=== PATIENT | female | born 1965 | race Caucasian/White ===

== ENCOUNTER 2019-12-13 15:26 | Outpatient (CLI) | payer BC ==
[2019-12-14] MEDS ORDERED: OXYM30SP26 BOTHNARES (10:35)
[2019-12-14] MEDS ORDERED: ESOM40CA49 PO (10:35)
[2019-12-14] MEDS ORDERED: DIPH25CA83 PO (10:35)
== END 2019-12-13 23:59 | disposition home or self-care (01) ==
LOC: RAD 15:26
PROVIDERS: ATTEND Surgery
DX: K21.9 Gastro-esophageal reflux disease without esophagitis (principal); R13.14 Dysphagia, pharyngoesophageal phase
CPT/HCPCS: 74230

== ENCOUNTER 2019-12-21 07:15 | Inpatient (IN) | payer BC ==
[2019-12-14 10:45] LABS: BASOPHILS # (AUTO) 0.1 X10'3 (0-0.2); BASOPHILS % (AUTO) 1.3 % (0-1); EOSINOPHILS # (AUTO) 0.3 X10'3 (0-0.9); EOSINOPHILS % (AUTO) 3.2 % (0-6); LYMPHOCYTES # (AUTO) 2.3 X10'3 (1.1-4.8); LYMPHOCYTES % (AUTO) 24.4 % (21-51); MEAN CORPUSCULAR HEMOGLOBIN 30.3 PG (27.0-31.0); MEAN CORPUSCULAR HGB CONC 33.9 g/dL (33.0-36.5); MEAN CORPUSCULAR VOLUME 89.4 FL (78-98); MEAN PLATELET VOLUME 8.1 FL (7.4-10.4); MONOCYTES # (AUTO) 0.7 X10'3 (0-0.9); MONOCYTES % (AUTO) 7.3 % (2-12); NEUTROPHILS # (AUTO) 5.9 X10'3 (1.8-7.7); NEUTROPHILS % (AUTO) 63.8 % (42-75); PRE OP HEMATOCRIT 44.9 % (35.0-45.0); PRE OP HEMOGLOBIN 15.2 g/dL (12.0-16.0); PRE OP PLATELET COUNT 408 X10'3 (140-440); RED BLOOD COUNT 5.02 X10'6 (4.20-5.60); RED CELL DISTRIBUTION WIDTH 14.5 % (11.5-14.5)
[2019-12-14 10:58] LABS: ALBUMIN 4.4 G/DL (3.4-5.0); ALBUMIN/GLOBULIN RATIO 1.2 (1.1-1.5); ALKALINE PHOSPHATASE 80 IU/L (46-116); BLOOD UREA NITROGEN 13 MG/DL (7-18); BUN/CREATININE RATIO 13.7 (6.6-38.0); CALCIUM 9.1 MG/DL (8.5-10.1); CHLORIDE 103 MMOL/L (99-107); CREATININE 0.95 MG/DL (0.40-0.90); PRE OP ALT 31 U/L (30-65); PRE OP ANION GAP 7 (8-16); PRE OP AST 17 U/L (10-37); PRE OP BILIRUB, TOTAL 0.4 MG/DL (0.0-1.0); PRE OP GLUCOSE 93 MG/DL (70-104); PRE OP SODIUM 140 MMOL/L (135-145); TOTAL CARBON DIOXIDE 30.1 MMOL/L (24-32); TOTAL PROTEIN 8.1 G/DL (6.4-8.2); eGFR 62 ML/MIN
[2019-12-21] VITALS (19 sets, daily range): BP systolic 114–159; BP diastolic 57–97
[~2019-12-21] VITALS: Ht 167.6 cm; Wt 77.9 kg
[~2019-12-21 07:15] MED LIST: BUPIVAcaine/PF 2.5 mg/ml (0.25%) 30ml vial ONE; DIPH25CA83 PO; ESOM40CA49 PO; LIDOcaine 1% 30ml preserv. free vial ONE; OXYM30SP26 BOTHNARES; ceFAZolin 2gm in dextrose, iso 50 ML IV ONE; famotidine 20mg tablet PO ONE; ringers solution, lacted 1,000 ML IV SCH
[2019-12-21] MEDS ORDERED: ringers solution, lacted 1,000 ML IV SCH (07:41)
[2019-12-21] MEDS ORDERED: morphine 4 MG/ML inj SYRINge IV PRN (07:45)
[2019-12-21] MEDS ORDERED: labetalol 20mg/4ml (5mg/ml) syringe IV PRN (07:45)
[2019-12-21] MEDS ORDERED: morphine 2 MG/ML inj. syringe IV PRN (07:45)
[2019-12-21] MEDS ORDERED: fentaNYL/PF 50MCG/1 ML 2ML syringe IV PRN ×2 (07:45)
[2019-12-21] MEDS ORDERED: ondansetron/PF 4mg/2ml inj IV PRN (07:45)
[2019-12-21] MEDS ORDERED: hydrALAZINE 20mg/ml inj. IV PRN (07:45)
[2019-12-21] MEDS ORDERED: fentaNYL/PF 50MCG/1 ML 2ML syringe ONE ×2 (08:52→10:47)
[2019-12-21] MEDS ORDERED: neostigmine methylsulfate 1 MG/ML 10ml vial ONE (08:53)
[2019-12-21] MEDS ORDERED: sevoflurane 250ml liquid IH ONE (08:53)
[2019-12-21] MEDS ORDERED: diphenhydrAMINE 50 mg/ml inj ONE (08:53)
[2019-12-21] MEDS ORDERED: propofol inj 20 ML IV ONE (08:53)
[2019-12-21] MEDS ORDERED: glycopyrrolate 0.2mg/ml inj ONE (08:53)
[2019-12-21] MEDS ORDERED: LIDOcaine 2% (20mg/ml) 5ml vial ONE (08:53)
[2019-12-21] MEDS ORDERED: rocuronium 10mg/ml inj IV ONE ×2 (08:53→10:26)
[2019-12-21] MEDS ORDERED: dexamethasone sod phosphate 10mg/ml inj ONE (08:53)
[2019-12-21] MEDS ORDERED: naloxone 0.4 mg/ml inj ONE (08:53)
[2019-12-21] MEDS ORDERED: MIDAZolam 5mg/5ml vial ONE (08:53)
[2019-12-21] MEDS ORDERED: ondansetron/PF 4mg/2ml inj ONE (09:06)
[2019-12-21] MEDS ORDERED: labetalol 20mg/4ml (5mg/ml) syringe IV ONE (09:23)
[2019-12-21] MEDS ORDERED: ePHEDrine 50MG/ML INJ. ONE (10:18)
--- NOTE | 2019-12-21 11:09 | NUR ---
Received from OR via SURGICAL BED, accompanied by Anesthesiologist and report given by Anesthesiolgist. SKIN WARM AND DRY. ABD WOUNDS WITH DERMABOND AND NO DRAINAGE NOTED. SCDS PLACED. IV PATENT. NO RESP DIATRESS. NO PAIN IN ABDOMEN BUT CAN "FEEL" NECK AND SHOULDERS.
[2019-12-21] MEDS ORDERED: oxymetazoline 15 ML nasal spray NS PRN (11:15)
[2019-12-21] MEDS ORDERED: CADD PCA waste documentation MC PRN (11:15)
[2019-12-21] MEDS ORDERED: diphenhydrAMINE 25mg capsule PO PRN (11:15)
[2019-12-21] MEDS ORDERED: naloxone 0.4 mg/ml inj IV PRN (11:15)
[2019-12-21] MEDS: HYDROmorphone/NS 1 mg/ml CADD 50 ML IV SCH ×7 (12:07→23:00)
--- NOTE | 2019-12-21 12:15 | NUR ---
RESTING COMFORTABLY NOW. VSS, IV PATENT. USING CADD. DEEP BREATHING ENCOURAGED. ABD THE SAME. NO ABD PAIN. JUST DISCOMFORT IN NECK AND SHOULDERS WHICH IS DECREASING.
--- NOTE | 2019-12-21 12:53 | NUR ---
Report phoned. Pt continues to do well. Vss. Neck and shoulder discomfort controlled with cadd pump. Awaiting room to be cleaned.
--- NOTE | 2019-12-21 13:00 | NUR ---
Patient in room [facility]. I have received report from SANTY LESLIE and had the opportunity to ask questions and assume patient care.
[2019-12-21] MEDS ORDERED: acetaminophen 1,000mg/100ml IV 100 ML IV STA (13:28)
--- NOTE | 2019-12-21 13:59 | NUR ---
transferred to room 348b without incident. Was medicated with tylenol iv prior to transport. By the time the pt reached the floor she was feeling much better.
[2019-12-21] MEDS: ondansetron/PF 4mg/2ml inj IV PRN ×2 (17:12→23:59)
[2019-12-21] MEDS: ceFAZolin inj. 1,000 MG in dextrose 5%-water 50ml 50 ML IV SCH ×2 (17:30→23:58)
--- NOTE | 2019-12-21 18:38 | NUR ---
Patient in room [facility] 348. I have received report from USMAN LESLIE and had the opportunity to ask questions and assume patient care.
[2019-12-21] MEDS: heparin, porcine 5000 units/ml vial SQ SCH (19:59)
[2019-12-22] VITALS: BP 130/65
[2019-12-22] MEDS: HYDROmorphone/NS 1 mg/ml CADD 50 ML IV SCH ×7 (01:00→12:54)
[2019-12-22 04:00] VITALS: BP 136/61
--- NOTE | 2019-12-22 06:00 | NUR ---
Patient in room [facility] 348. I have received report from ANUJ Espinosa and had the opportunity to ask questions and assume patient care.
[2019-12-22 06:08] LABS: BASOPHILS # (AUTO) 0.1 X10'3 (0-0.2); BASOPHILS % (AUTO) 0.5 % (0-1); EOSINOPHILS % (AUTO) 0.1 % (0-6); HEMATOCRIT 39.4 % (35.0-45.0); HEMOGLOBIN 12.9 g/dl (12.0-16.0); LYMPHOCYTES # (AUTO) 1.7 X10'3 (1.1-4.8); LYMPHOCYTES % (AUTO) 9.8 % (21-51); MEAN CORPUSCULAR HEMOGLOBIN 29.4 PG (27.0-31.0); MEAN CORPUSCULAR HGB CONC 32.7 g/dL (33.0-36.5); MEAN CORPUSCULAR VOLUME 89.8 FL (78-98); MEAN PLATELET VOLUME 9.2 FL (7.4-10.4); MONOCYTES # (AUTO) 1.2 X10'3 (0-0.9); MONOCYTES % (AUTO) 6.6 % (2-12); NEUTROPHILS # (AUTO) 14.8 X10'3 (1.8-7.7); PLATELET COUNT 329 X10'3 (140-440); RED BLOOD COUNT 4.39 X10'6 (4.20-5.60); RED CELL DISTRIBUTION WIDTH 14.7 % (11.5-14.5); WHITE BLOOD COUNT 17.8 X10'3 (4.5-11.0)
[2019-12-22 06:18] LABS: ANION GAP 9 (8-16); BLOOD UREA NITROGEN 7 MG/DL (7-18); CALCIUM 8.8 MG/DL (8.5-10.1); CHLORIDE 102 MMOL/L (99-107); CREATININE 0.78 MG/DL (0.40-0.90); GLUCOSE 95 MG/DL (70-104); POTASSIUM 3.7 MMOL/L (3.5-5.1); SODIUM 139 MMOL/L (135-145); TOTAL CARBON DIOXIDE 28.4 MMOL/L (24-32); eGFR 77 ML/MIN
--- NOTE | 2019-12-22 06:25 | NUR ---
Problems reprioritized. Patient report given, questions answered & plan of care reviewed with Musmekhi RN.
[2019-12-22] MEDS: heparin, porcine 5000 units/ml vial SQ SCH (08:00)
[2019-12-22] MEDS: ceFAZolin inj. 1,000 MG in dextrose 5%-water 50ml 50 ML IV SCH (09:04)
[2019-12-22 09:13] VITALS: BP 124/65
[2019-12-22] MEDS: ondansetron/PF 4mg/2ml inj IV PRN (12:45)
[2019-12-22] MEDS ORDERED: ondansetron 4mg rapidly disintigrating tab PO PRN (13:25)
[2019-12-22] MEDS ORDERED: oxyCODONE/APAP 5-325mg tablet PO PRN (13:25)
[2019-12-22] MEDS ORDERED: PER5325T PO (13:27)
[2019-12-22] MEDS ORDERED: ONDA4TAB12 PO (13:46)
--- NOTE | 2019-12-22 15:02 | NUR ---
Nutrition consult: Pt seen at bedside provided with written and verbal s/p Erika fundoplication nutrition therapy and full liquid diet nutrition therapy educations as well as a list of fiber content in foods and ONS coupons. All of patient's questions were answered at this time. Pt able to teach back educations and states she already has [employer] at home to ensure adequate protein intake post-op. RD contact information provided. Will remain available. Addendum: 12/22/19 at [address] Amended: Links added.
--- NOTE | 2019-12-22 15:19 | NUR ---
Patient discharged home into the care of . Patient alert, oriented, and appropriate for discharge. Patient given paper copy of percocet prescription and a copy is in the chart. Patient new medications called into preferred pharmacy [facility] on [address]. Patient left with all belongings. Patient verbalized understanding of discharge instructions and dietary guidelines and will follow up with MD Lr within two weeks. Patient IV removed. Patient not on tele.
== END 2019-12-22 15:13 | disposition home or self-care (01) | DRG 328 ==
LOC: PAS 07:15 → EDSTATUS 09:00 → EDUNIT# 09:00 → EDSTATUS 09:00 → SUR 3N 11:13
PROVIDERS: ADMIT Surgery; ATTEND Surgery
PROC: 0BQT4ZZ Repair Diaphragm, Percutaneous Endoscopic Approach (ICD-10-PCS; 2019-12-21)
PROC: 8E0W4CZ Robotic Assisted Procedure of Trunk Region, Percutaneous Endoscopic Approach (ICD-10-PCS; 2019-12-21)
PROC: 0DV44ZZ Restriction of Esophagogastric Junction, Percutaneous Endoscopic Approach (ICD-10-PCS; principal; 2019-12-21 08:53)
DX: K44.9 Diaphragmatic hernia without obstruction or gangrene (principal); Z03.818 Encounter for observation for suspected exposure to other biological agents ruled out
CPT/HCPCS: Z7506; Z7508; 36415; 71045; 74220; 80048; 80053; 82948; 85025; 87081; 93005; A4215; A4618; C1758; G0378; J0131; J0690; J1100; J1170; J1200; J1644; J2001; J2250; J2270; J2310; J2405; J2704; J2710; J3010; J3490; J7060; J7120; Q0163